=== PATIENT | female | born 1940 | race Caucasian/White ===

== ENCOUNTER 2017-06-05 20:04 | Emergency (ER) | payer MEDICARE, BC ==
[~2017-06-05] VITALS: Ht 167.6 cm; Wt 118.0 kg
[~2017-06-05 20:04] MED LIST: AUGMENTIN500TAB PO; AUGMENTIN875TAB PO; BACTRIM DS1 TAB PO; BENADRYL25 M1 PO; DIFLUCAN150 MG PO; DOXYCYCL HYC100 M4 PO; DYAZIDE1 CAP PO; FLONASE NASAL50 MCG; LEVOTHYROXIN50 MC1 PO; LEVOTHYROXIN50 MCG PO; LOSARTAN POT50 MG PO; LOTRISONE EX; NORCO1 TA1 PO; PREDNISONE20 MG PO; SYNTHROID25 MCG PO; TENORMIN PO; TENORMIN25 M1; TENORMIN50 MG PO; TRIAMCINOLON0.11
[2017-06-05] MEDS ORDERED: ADVAIR DISK1 INH (21:07)
[2017-06-05 21:20] LABS: HEMOGLOBIN 13.4 g/dl (12.0-16.0); IMMATURE GRANULOCYTES 0.3 % (0.0-1.0); MEAN CORPUSCULAR HGB 28.5 pG CALC (26.0-32.0); MEAN CORPUSCULAR HGB CONC 32.7 g/L CALC (32.0-36.0); NEUT# 11.87 thou/uL (2.00-7.15); RED BLOOD COUNT 4.71 mill/uL (4.20-5.60); RED CELL DISTRI WIDTH 13.5 % (11.5-15.5)
[2017-06-05 21:35] LABS: ALBUMIN 4.3 g/dL (3.2-5.0); ALKALINE PHOSPHATASE 101 u/l (38-126); AMYLASE < 30 u/l (30-110); ANION GAP 17 (6-22 (CALC)); BILIRUBIN, TOTAL 0.9 mg/dL (0.0-1.4); BUN 18 mg/dL (8-23); BUN/CREATININE RATIO 17 (12-20 (CALC)); CALCIUM 9.9 mg/dL (8.4-10.2); CARBON DIOXIDE 24 mmol/l (22-30); CHLORIDE 104 mmol/l (95-108); GFR 54 ML/MIN (>=60 (CALC)); GFR FOR AFR.AMER. > 60 ML/MIN (>=60 (CALC)); GLUCOSE 133 mg/dL (82-115); LIPASE 29 u/l (23-300); POTASSIUM 4.1 mmol/l (3.5-5.1); SGOT/AST 20 u/l (9-36); SGPT/ALT 31 u/l (11-66); SODIUM 141 mmol/l (137-146); TOTAL PROTEIN 7.3 g/dL (6.3-8.2)
[2017-06-06 01:11] LABS: URINE BILIRUBIN - DIPSTICK NEGATIVE (NEGATIVE); URINE BLOOD DIPSTICK LARGE (NEGATIVE); URINE COLOR YELLOW; URINE GLUCOSE - DIPSTICK NEGATIVE (NEGATIVE); URINE KETONE NEGATIVE (NEGATIVE); URINE PH 5.5 (4.5-8.0); URINE PROTEIN - DIPSTICK 30 mg/dL (NEG-TRACE); URINE UROBILINOGEN - DIPSTICK 0.2 E.U./dL (0.2)
[2017-06-06 01:21] LABS: URINE CLARITY CLOUDY; URINE LEUK ESTERASE MODERATE (NEGATIVE); URINE NITRITE - DIPSTICK POSITIVE (Negative)
[2017-06-06 01:28] LABS: URINE BACTERIA FEW hpf; URINE WBC TNTC WBC/hpf (0-5)
[2017-06-06] MEDS ORDERED: PERCOCET 5/325M1 TAB PO (01:39)
[2017-06-06] MEDS ORDERED: Levaquin PO (01:39)
[2017-06-06] MEDS ORDERED: METRONIDAZOL500 MG PO (01:39)
[2017-06-06 02:24] VITALS: BP 149/73
== END 2017-06-06 02:35 | disposition home or self-care (01) ==
LOC: ED 20:04
PROVIDERS: Emergency Medicine
DX: N39.0 Urinary tract infection, site not specified (principal); K57.32 Diverticulitis of large intestine without perforation or abscess without bleeding; E03.9 Hypothyroidism, unspecified; I10 Essential (primary) hypertension

== ENCOUNTER 2017-06-09 12:47 | Observation (INO) | payer MEDICARE, BC ==
[~2017-06-09] VITALS: Ht 167.6 cm; Wt 117.3 kg
[~2017-06-09 12:47] MED LIST changes: +ADVAIR DISK1 INH; +Levaquin PO; +METRONIDAZOL500 MG PO; +PERCOCET 5/325M1 TAB PO
--- NOTE | 2017-06-09 12:53 | NUR ---
NO ANSWER WHEN CALLED FOR TRIAGE
--- NOTE | 2017-06-09 13:07 | NUR ---
AMBULATORY TO ER ROOM 15, TO BED
[2017-06-09 13:33] LABS: URINE BILIRUBIN - DIPSTICK NEGATIVE (NEGATIVE); URINE BLOOD DIPSTICK SMALL (NEGATIVE); URINE COLOR YELLOW; URINE GLUCOSE - DIPSTICK NEGATIVE (NEGATIVE); URINE KETONE NEGATIVE (NEGATIVE); URINE NITRITE - DIPSTICK NEGATIVE (Negative); URINE PROTEIN - DIPSTICK NEGATIVE (NEG-TRACE); URINE UROBILINOGEN - DIPSTICK 0.2 E.U./dL (0.2)
[2017-06-09 13:37] LABS: URINE CLARITY CLOUDY; URINE LEUK ESTERASE MODERATE (NEGATIVE)
[2017-06-09 13:40] LABS: HEMATOCRIT 37.1 % (37.0-47.0); HEMOGLOBIN 12.1 g/dl (12.0-16.0); IMMATURE GRANULOCYTES 0.3 % (0.0-1.0); MEAN CELL VOLUME 87.3 fL CALC (80.0-100.0); MEAN CORPUSCULAR HGB 28.5 pG CALC (26.0-32.0); MEAN CORPUSCULAR HGB CONC 32.6 g/L CALC (32.0-36.0); NEUT# 5.67 thou/uL (2.00-7.15); RED BLOOD COUNT 4.25 mill/uL (4.20-5.60); RED CELL DISTRI WIDTH 13.5 % (11.5-15.5)
[2017-06-09 13:53] LABS: URINE BACTERIA FEW hpf; URINE SQUAMOUS EPITHELIAL CELL FEW EPI/hpf (0-FEW); URINE WBC 20-50 WBC/hpf (0-5)
--- NOTE | 2017-06-09 14:12 | NUR ---
PT RESTING COMFORTABLY IN BED. WAITING TO GO TO [facility] [place]. DENIES PAIN AT THIS TIME.
[2017-06-09 14:49] LABS: ALBUMIN 3.7 g/dL (3.2-5.0); ALKALINE PHOSPHATASE 83 u/l (38-126); ANION GAP 17 (6-22 (CALC)); BILIRUBIN, TOTAL 0.3 mg/dL (0.0-1.4); BUN 17 mg/dL (8-23); BUN/CREATININE RATIO 18 (12-20 (CALC)); CARBON DIOXIDE 22 mmol/l (22-30); CHLORIDE 108 mmol/l (95-108); CREATININE 0.9 mg/dL (0.5-1.0); GFR > 60 ML/MIN (>=60 (CALC)); GFR FOR AFR.AMER. > 60 ML/MIN (>=60 (CALC)); LIPASE 24 u/l (23-300); POTASSIUM 4.5 mmol/l (3.5-5.1); SGOT/AST 24 u/l (9-36); SGPT/ALT 24 u/l (11-66); SODIUM 142 mmol/l (137-146); TOTAL PROTEIN 6.6 g/dL (6.3-8.2)
--- NOTE | 2017-06-09 15:03 | NUR ---
PT GIVEN A WARM BLANKET. DISPO PENDING TEST RESULTS. DENIES N/V/D.
--- NOTE | 2017-06-09 16:02 | NUR ---
PT RESTING IN BED. SISTER & @ BEDSIDE. PENDING ADMIT
--- NOTE | 2017-06-09 16:33 | NUR ---
MD @ BEDSIDE. PT GIVEN WARM BLANKET & TEMP IN ROOM TURNED UP.
--- NOTE | 2017-06-09 17:32 | NUR ---
MD @ BEDSIDE. DISCUSSING POC WITH PT & FAMILY
--- NOTE | 2017-06-09 17:45 | NUR ---
RECVING FELI DAVENPORT.
--- NOTE | 2017-06-09 18:03 | NUR ---
LAB CALLED FOR BLOOD CULTURES x2 BEFORE ABX CAN BE STARTED. RADIOLOGY CALLED TO CLARIFY "NO STONES NOTED- IN KIDNEYS" ON CT REPORT.
--- NOTE | 2017-06-09 18:09 | NUR ---
Admission Note Report Given to: RAJEEV Transported by: X Wheelchair Stretcher Transported with: X Nurse Transporter X Patent IV [id number] Boom Crane Operator
--- NOTE | 2017-06-09 18:11 | NUR ---
#16F CATH JEAN INSERTED PER MD ORDER. 1400CC DARK YELLOW CLEAR URINE OUTPUT.
[2017-06-09 18:40] VITALS: BP 119/61
--- NOTE | 2017-06-09 18:45 | NUR ---
PT TRANSFERED TO [facility] ROOM 271 BY CONSUELO. CATH JEAN DRAINED PRIOR TO TRANSFER. & SISTER ACCOMPANIED PT TO ROOM. RN @ BEDSIDE. BLOOD CULTURES DRAWN IMMED PRIOR TO TRANSFER, NO ABX STARTED IN ER. TEST RESULTS DISCUSSED WITH PT & FAMILY. NO FURTHER QUESTIONS OR NEEDS. PT IN STABLE CONDITION.
--- NOTE | 2017-06-09 19:00 | NUR ---
RECEIVED CHANGE OF SHIFT REPORT FROM FELI BOO. PATIENT A/O AND SITTING UP IN BED. NO APPARENT ACUTE DISTRESS OR DISCOMFORT AT THIS TIME. WILL CONTINUE TO MONITOR.
--- NOTE | 2017-06-09 19:15 | NUR ---
REPORT RECEIVED FROM MAHESH Shook ED, PT ARRIVED ON UNIT VIA W/C @ 1841, ALERT AND ORIENTED X 4, AMBULATED TO BED AND SETTLED, ORIENTED TO ROOM AND CALL SILVER. JEAN CATHETER IN PLACE WITH PALE YELLOW URINE. MAHESH REPORTED BLOOD CULTURES WERE DONE IN ED BUT NO ANTIBIOTIC WAS GIVEN, THIS REPORT WAS PASSED ON TO YAZAN. PT REPORTS ABDOMINAL DISCOMFORT/PAIN WAS MUCH IMPROVED. FAMILY MEMBERS IN ROOM, CARE CONTINUES WITH HS NURSE.
--- NOTE | 2017-06-10 | NUR ---
PATIENT RESTING COMFORTABLY AT THIS TIME. FAMILY AT BEDSIDE. NO APPARENT ACUTE DISTRESS NOTED AT THIS TIME.
[2017-06-10 04:00] VITALS: BP 94/54
--- NOTE | 2017-06-10 04:00 | NUR ---
PATIENT SLEPT WELL. NO APPARENT ACUTE CHANGES NOTED IN PATIENT'S CONDITION.
--- NOTE | 2017-06-10 04:47 | NUR ---
PT STATED. "ABDOMINAL PAIN IS GONE"
[2017-06-10 05:28] LABS: CREATININE 1.1 mg/dL (0.5-1.0); MAGNESIUM 1.8 mg/dL (1.6-2.3); POTASSIUM 4.7 mmol/l (3.5-5.1)
[2017-06-10 05:30] LABS: HEMATOCRIT 32.6 % (37.0-47.0); HEMOGLOBIN 10.4 g/dl (12.0-16.0); IMMATURE GRANULOCYTES 1.2 % (0.0-1.0); MEAN CELL VOLUME 89.6 fL CALC (80.0-100.0); MEAN CORPUSCULAR HGB 28.6 pG CALC (26.0-32.0); MEAN CORPUSCULAR HGB CONC 31.9 g/L CALC (32.0-36.0); NEUT# 5.53 thou/uL (2.00-7.15); RED BLOOD COUNT 3.64 mill/uL (4.20-5.60); RED CELL DISTRI WIDTH 13.7 % (11.5-15.5)
--- NOTE | 2017-06-10 07:00 | NUR ---
RECEIVED BEDSIDE REPORT FROM YAZAN EDMOND. RESTING IN BED WITH EYES CLOSDED, AWAKENS EASILY. RESPS EVEN AND UNLABORED ON ROOM AIR, TELE MONITOR IN PLACE. #22 RFA INFUSING WITHOUT DIFFICULTY, SITE APPEARS HEALTHY. DENIES PAIN OR DISCOMFORT. JEAN PATENT, DRAINING BREN COLORED URINE TO GRAVITY. VISITOR AT BEDSIDE. PLAN OF CARE DISCUSSED. SAFETY PRECAUTIONS REINFORCED. BED IN LOWEST POSITION WITH WHEELS LOCKED. CALL LIGHT WITHIN REACH. ENCOURAGED PT AND VISITIOR TO CALL FOR ANY NEEDS.
[2017-06-10 08:15] VITALS: BP 118/56
--- NOTE | 2017-06-10 08:15 | NUR ---
RECEIVED REPORT FROM FELI HAND. PT ASSESSMENT COMPLETED. PT A&O X3. EYES PERRLA. HR NORMAL. LUNG SOUNDS CLEAR. RESPIRATIONS EVEN AND UNLABORED ON RA. BOWEL SOUNDS ACTIVE IN ALL QUADRANTS. ABDOMEN SOFT. PT STATED HAVING ABDOMINAL TENDERNESS IN THE LOWER QUADRANTS. BUT DENIES PAIN. PT STATED "IT'S JUST UNCOMFORTABLE". STRONG RADIAL/PEDAL PULSES. JEAN CATHETER INTACT W/ CLEAR YELLOW URINE. BED IN LOWEST POSITION, WHEELS LOCKED. CALL LIGHT PLACED WITHIN REACH. PT EDUCATED TO CALL FOR HELP. WILL CONTINUE TO MONITOR.
--- NOTE | 2017-06-10 12:00 | NUR ---
SITTING ON EDGE OF BED EATING LUNCH. RESPS EVEN AND UNLABORED ON ROOM AIR. #22 RFA INFUSING WITHOUT DIFFICULTY, SITE APPEARS HEALTHY. JEAN PATENT DRAINING YELLOW URINE TO GRAVITY. DENIES PAIN OR DISCOMFORT. FAMILY AT BEDSIDE. CALL LIGHT WITHIN REACH. WILL CONTINUE TO MONITOR.
--- NOTE | 2017-06-10 13:50 | NUR ---
SITTING ON EDGE OF BED. RESPS EVEN AND UNLABORED ON ROOM AIR. MEDICATED WITH LORTAB PO FOR C/O 4/10 BACK AND PELVIC PAIN. PO FLUIDS OFFERED. FAMILY AT BEDSIDE. CALL LIGHT WITHIN REACH. WILL CONTINUE TO MONITOR.
--- NOTE | 2017-06-10 15:10 | NUR ---
DR ROBERTS IN WITH PT, NEW ORDERS RECEIVED.
--- NOTE | 2017-06-10 15:34 | NUR ---
The consult for DR. East was called and I sopke to the secretary to board of commissioners Mario @ [phone]
[2017-06-10 16:01] VITALS: BP 128/52
[2017-06-10] MEDS ORDERED: LEVOTHYROXIN75 MCG PO (16:07)
--- NOTE | 2017-06-10 16:07 | NUR ---
Saw pt for medication education rounds. Pt was concerned that she is not receiving her home meds. Pt's sister is bringing in all home medications and was instructed to give them to the nurse. Pt expressed that she has constipation. Pt had no questions or concerns.
--- NOTE | 2017-06-10 19:00 | NUR ---
PT SITTING UP IN BED. FAMILY IN ROOM. PT IS ALERT AND ORIENTED X3. PERRLA. RESP ARE EVEN AND UNLABORED. NO DISTRESS NOTED. LUNGS ARE CLEAR. HR REGULAR. PULSES PALPABLE THROUGHOUT. NO EDEMA NOTED. BS ACTIVE. PT DENIES BOWEL MOVEMENT AT THIS TIME. #22 RFA WITH NS @80ML/HR. NO REDNESS OR EDEMA NOTED. WILL CONTINUE TO MONITOR
[2017-06-10 20:04] VITALS: BP 117/58
--- NOTE | 2017-06-10 23:00 | NUR ---
PT VOMITTING WITH COMPLAINTS OF ABDOMINAL PAIN. PT HAD SMALL BOWEL MOVEMENT FOUL SMELLING HARD DARK STOOL. DR ROBERTS NOTIFIED. ORDERS RECEIVED.
--- NOTE | 2017-06-11 00:29 | NUR ---
PT MEDICATED FOR NAUSEA. PT REQUESTS TO WAIT FOR SUPPOSITORY. PT STATES THAT SHE IS WORE OUT FROM VOMITTING AND GETTING UP TO USE BATHROOM FOR BM EARLIER.
--- NOTE | 2017-06-11 02:00 | NUR ---
PT TO RADIOLOGY FOR XRAY VIA WC.
--- NOTE | 2017-06-11 02:20 | NUR ---
PT RETURNED TO ROOM FROM RADIOLOGY
--- NOTE | 2017-06-11 04:02 | NUR ---
PT RESTING IN BED WITH EYES CLOSED. AROUSES EASILY TO VERBAL STIMULI. RESP ARE EVEN AND UNLABORED. NO DISTRESS NOTED. WILL CONTINUE TO MONITOR
[2017-06-11 05:05] VITALS: BP 125/67
[2017-06-11 06:31] LABS: HEMATOCRIT 37.4 % (37.0-47.0); HEMOGLOBIN 11.8 g/dl (12.0-16.0); IMMATURE GRANULOCYTES 0.9 % (0.0-1.0); MEAN CELL VOLUME 90.6 fL CALC (80.0-100.0); MEAN CORPUSCULAR HGB 28.6 pG CALC (26.0-32.0); MEAN CORPUSCULAR HGB CONC 31.6 g/L CALC (32.0-36.0); NEUT# 19.73 thou/uL (2.00-7.15); RED BLOOD COUNT 4.13 mill/uL (4.20-5.60); RED CELL DISTRI WIDTH 13.7 % (11.5-15.5)
[2017-06-11 06:40] LABS: ALBUMIN 3.2 g/dL (3.2-5.0); BILIRUBIN, TOTAL 0.2 mg/dL (0.0-1.4); CHOLESTEROL HDL RATIO 3.3 (<4.4 (CALC)); TOTAL PROTEIN 5.8 g/dL (6.3-8.2)
[2017-06-11 06:53] LABS: CREATININE 1.1 mg/dL (0.5-1.0); MAGNESIUM 2.3 mg/dL (1.6-2.3)
--- NOTE | 2017-06-11 07:00 | NUR ---
RECEIVED BEDSIDE REPORT FROM KIERAN EDMOND. RESTING IN BED WITH EYES CLOSED, AWAKENS EASILY. RESPS EVEN AND UNLABORED ON ROOM AIR. JEAN PATENT, DRAINING YELLOW URINE TO GRAVITY. #22 RFA INFUSING WITHOUT DFFICULTY, SITE APPEARS HEALTHY. VOICES NO NEEDS AT THIS TIME. VISITOR AT BEDSIDE. PLAN OF CARE DISCUSSED. SAFETY PRECAUTIONS REINFORCED. BED IN LOWEST POSITION WITH WHEELS LOCKED. CALL LIGHT WITHIN REACH. ENCOURAGED PT AND VISITOR TO CALL FOR ANY NEEDS.
[2017-06-11 08:55] VITALS: BP 110/46
--- NOTE | 2017-06-11 11:30 | NUR ---
RESTING IN SUPINE POSITION. RESPS EVEN AND UNLABORED ON ROOM AIR. #22 RFA INFUSING WITHOUT DIFFICULTY, SITE APPEARS HEALTHY. JEAN PATENT, DRAINING YELLOW URINE TO GRAVITY. SISTER AT BEDSIDE. DENIES PAIN OR DISCOMFORT. CALL LIGHT WITHIN REACH. ENCOURAGED PT AND FAMILY TO CALL FOR ANY NEEDS.
--- NOTE | 2017-06-11 11:45 | NUR ---
DR HANSEN AT BEDSIDE, AWAITING NEW ORDERS.
--- NOTE | 2017-06-11 12:40 | NUR ---
DR ROBERTS IN WITH PT, NEW ORDERS RECEIVED.
--- NOTE | 2017-06-11 14:55 | NUR ---
RESTING IN BED WITH EYES CLOSED, AWAKENS EASILY. SISTER AT BEDSIDE. MEDIATED WITH ZOFRAN 4MG IVP FOR NAUSEA, LORTAB PO FOR 5/10 BACK AND PELVIC PAIN. CALL LIGHT WITHIN REACH. ENCOURAGED PT TO CALL FOR ANY NEEDS.
[2017-06-11 15:14] VITALS: BP 121/56
--- NOTE | 2017-06-11 19:10 | NUR ---
REPORT RECEIVED FROM FELI AGUERO;UPON ENTERING THE ROOM;PT ON BEDSIDE WITH FAMILY;POC DISCUSSED;PT VOICES COMPLAINTS OF GAS PAIN AND IS ENCOURAGED TO AMBULATE;FALL PRECAUTIONS IN PLACE WITH CALL LIGHT IN REACH;WILL CONTINUE TO MONITOR
[2017-06-11 19:15] VITALS: BP 122/50
--- NOTE | 2017-06-11 20:15 | NUR ---
PT RESTING IN SEMI FOWLERS POSITION;A&O X3;RESPIRATIONS EVEN AND UNLABORED ON RA;ASSESSMENT COMPLETED;CLEAR LUNG SOUNDS NOTED;ABDOMEN DISTENDED,SOFT;JEAN CATHETER PATENT HANGING TO GRAVITY;#22G TO RIGHT FOREARM INFUSING NS @ 80ML/HR,SITE APPEARS HEALTHY;STRONG PEDAL PULSES;PT VOICES NO COMPLAINTS AT THIS TIME AND IS ENCOURAGED TO CALL FOR ASSISTANCE IF NEEDED;FALL PRECAUTIONS IN PLACE;WILL CONTINUE TO MONITOR
--- NOTE | 2017-06-11 20:30 | NUR ---
PT AMBULATED ALL 3 HALLWAYS WITH A STEADY GAIT;PT THEN RE-POSITIONED INTO BED;WILL CONTINUE TO MONITOR
--- NOTE | 2017-06-11 23:10 | NUR ---
PT APPEARS TO BE SLEEPING WITH FAMILY MEMBER AT BEDSIDE;RESPIRATIONS EVEN AND UNLABORED ON RA;NO S/S OF DISTRESS NOTED;IV FLUIDS INFUSING WELL TO RIGHT FOREARM;JEAN CATHETER PATENT;CALL LIGHT IN REACH;WILL CONTINUE TO MONITOR
[2017-06-12 04:25] VITALS: BP 126/66
--- NOTE | 2017-06-12 05:00 | NUR ---
PT RESTING IN BED WITH FAMILY AT BEDSIDE;PT REPORTS A GREAT NIGHT SLEEP STATING "WE WERE OUT";IV FLUIDS INFUSING WELL TO RIGHT FOREARM;JEAN CATHETER PATENT AND DRAINING TO GRAVITY;PT ENCOURAGED AMBULATION THIS MORNING;FALL PRECAUTIONS IN PLACE WITH CALL LIGHT IN REACH;WILL CONTINUE TO MONITOR
[2017-06-12 05:12] LABS: HEMATOCRIT 33.2 % (37.0-47.0); HEMOGLOBIN 10.8 g/dl (12.0-16.0); IMMATURE GRANULOCYTES 0.4 % (0.0-1.0); MEAN CELL VOLUME 89.5 fL CALC (80.0-100.0); MEAN CORPUSCULAR HGB 29.1 pG CALC (26.0-32.0); MEAN CORPUSCULAR HGB CONC 32.5 g/L CALC (32.0-36.0); NEUT# 7.63 thou/uL (2.00-7.15); RED BLOOD COUNT 3.71 mill/uL (4.20-5.60); RED CELL DISTRI WIDTH 13.7 % (11.5-15.5)
[2017-06-12 05:36] LABS: ANION GAP 12 (6-22 (CALC)); BUN 15 mg/dL (8-23); BUN/CREATININE RATIO 17 (12-20 (CALC)); CARBON DIOXIDE 23 mmol/l (22-30); CHLORIDE 110 mmol/l (95-108); CREATININE 0.9 mg/dL (0.5-1.0); GFR > 60 ML/MIN (>=60 (CALC)); GFR FOR AFR.AMER. > 60 ML/MIN (>=60 (CALC)); POTASSIUM 4.3 mmol/l (3.5-5.1); SODIUM 140 mmol/l (137-146)
--- NOTE | 2017-06-12 09:13 | NUR ---
PT.UPRIGHT ON SIDE OF BED W/SISTER AT BEDSIDE. PT.REPORTS MILD NAUSEA. V/S ASSESSED AND POC DISCUSSED. PT.AMBULATED ADAIR THIS AM, BUT REPORTS STILL HAVING SOME MILD LOWER ABD.DISCOMFORT ALONG W/MILD HEADACHE. REFUSES MEDICATIONS FOR NAUSEA AT THIS TIME. CALL LIGHT W/IN REACH.
[2017-06-12] MEDS ORDERED: SURFAK240 MG/CAP PO (12:44)
[2017-06-12] MEDS ORDERED: ZOFRAN ODT4 MG PO (12:44)
[2017-06-12] MEDS ORDERED: PERCOCET 5/325M1 TAB PO (12:44)
[2017-06-12] MEDS ORDERED: FLORASTOR250 M1 PO (12:44)
== END 2017-06-12 14:30 | disposition home health service (06) ==
LOC: ED 12:47 → ED-I 17:30 → ED 17:40 → MS2 17:41
PROVIDERS: Family Medicine; Nurse Practitioner Family; ADMIT Internal Medicine; ATTEND Internal Medicine
PROC: 0T9B70Z Drainage of Bladder with Drainage Device, Via Natural or Artificial Opening (ICD-10-PCS; principal; 2017-06-09)
DX: N39.0 Urinary tract infection, site not specified (principal); K57.32 Diverticulitis of large intestine without perforation or abscess without bleeding; I12.9 Hypertensive chronic kidney disease with stage 1 through stage 4 chronic kidney disease, or unspecified chronic kidney disease; N18.3 Chronic kidney disease, stage 3 (moderate); E03.9 Hypothyroidism, unspecified; R73.03 Prediabetes; R33.9 Retention of urine, unspecified; N28.1 Cyst of kidney, acquired; N21.0 Calculus in bladder; K59.00 Constipation, unspecified; N17.9 Acute kidney failure, unspecified; E86.0 Dehydration; D64.9 Anemia, unspecified; R00.1 Bradycardia, unspecified; Z87.440 Personal history of urinary (tract) infections
CPT/HCPCS: G0378; J0692; J1650; Q9967